=== PATIENT | female | born 1950 | race Caucasian/White ===

== ENCOUNTER 2016-08-02 17:07 | Emergency (ER) | payer OTHER ==
--- NOTE | 2016-08-02 17:51 | Diag Imaging Result Document ---
PROCEDURE NAME: HAND COMPLETE LEFT - 08/02/2016 LEFT HAND 3 VIEWS: There are degenerative changes in the interphalangeal joints. There is no evidence of acute fracture or dislocation. IMPRESSION: No acute disease.
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
[2016-08-02 19:21] VITALS: BP 137/88
== END 2016-08-02 19:20 | disposition home or self-care (01) ==
LOC: P.ED 17:07
DX: S60.222A Contusion of left hand, initial encounter (principal); M79.642 Pain in left hand; M25.442 Effusion, left hand; V89.2XXA Person injured in unspecified motor-vehicle accident, traffic, initial encounter
CPT/HCPCS: 99283